=== PATIENT | female | born 1980 | race Caucasian/White ===

== ENCOUNTER 2018-04-12 18:38 | Inpatient (IN) | payer MEDICAID ==
[2018-04-12] MEDS ORDERED: MISOPROSTOL 200 MCG TAB PR (19:30)
[2018-04-12] MEDS ORDERED: IBUPROFEN 600 MG TAB PO (19:30)
[2018-04-12] MEDS ORDERED: OXYTOCIN 30 UNITS/LR 500 ML IV ×3 (19:30)
[2018-04-12] MEDS ORDERED: BUTORPHANOL 2 MG INJ IV (19:30)
[2018-04-12] MEDS ORDERED: METHYLERGONOVINE 0.2 MG INJ IM (19:30)
[2018-04-12] MEDS ORDERED: LIDOCAINE 1% (MPF) 30 ML INJ INJ (19:30)
[2018-04-12] MEDS ORDERED: CARBOPROST 250 MCG INJ IM (19:30)
[2018-04-12 19:55] LABS: ADD MAN DIFF? NO
[2018-04-12 19:58] LABS: WHITE BLOOD COUNT 12.4 10^3/ul (4.8-10.8)
[2018-04-12 19:58] LABS: BASOPHIL # 0.1 10^3/ul (0.0-0.1); BASOPHILS % 0.4 % (0.0-2.0); EOSINOPHILS # 0.2 10^3/ul (0.0-0.5); EOSINOPHILS % 1.2 % (0.0-7.0); HEMATOCRIT 35.3 % (37.0-47.0); HEMOGLOBIN 11.6 g/dl (12.0-16.0); LYMPHOCYTES # 1.7 10^3/ul (0.8-2.9); LYMPHOCYTES % 13.9 % (15.0-51.0); MEAN CORPUSCULAR HEMOGLOBIN 30.1 pg (29.0-33.0); MEAN CORPUSCULAR HGB CONC 32.9 g/dl (32.0-37.0); MEAN CORPUSCULAR VOLUME 91.7 fl (82.0-101.0); MEAN PLATELET VOLUME 9.6 fl (7.4-10.4); MONOCYTE # 1.1 10^3/ul (0.3-0.9); MONOCYTES % 8.5 % (0.0-11.0); NEUTROPHIL # 9.3 10^3/ul (1.6-7.5); NEUTROPHILS % 74.8 % (39.0-77.0); PLATELET COUNT 339 10^3/UL (140-415); RED BLOOD COUNT 3.85 10^6/ul (4.20-5.40); RED CELL DISTRIBUTION WIDTH 13.4 % (11.5-14.5)
[2018-04-12] MEDS: LACTATED RINGER'S 1,000 ML IV* (20:26)
[2018-04-12 20:29] LABS: INR 0.84; PARTIAL THROMBOPLASTIN TIME 26.4 Sec (25.0-35.0); PROTIME 11.6 Sec (11.9-14.9); PT RATIO 0.9
[2018-04-12] MEDS: DINOPROSTONE 10 MG VAG SUPP VAG (21:38)
[2018-04-13 00:17] LABS: HEPATITIS B SURFACE ANTIGEN NEGATIVE (NEGATIVE)
[2018-04-13] MEDS: LACTATED RINGER'S 1,000 ML IV* ×3 (02:27→18:47)
[2018-04-13 04:36] LABS: RUPTURE FETAL MEMBRANES POSITIVE (NEGATIVE)
[2018-04-13] MEDS ORDERED: MINERAL OIL LIGHT 10 ML VIAL TOP (05:00)
[2018-04-13] MEDS: DINOPROSTONE 10 MG VAG SUPP VAG (11:28)
[2018-04-13] MEDS: AMPICILLIN 2 GM/NS (PMX) 100 ML IV (11:29)
[2018-04-13] MEDS: AMPICILLIN 1 GM/NS (PMX) 50 ML IV ×3 (15:06→23:57)
[2018-04-13 21:21] LABS: RAPID PLASMA REAGIN NONREACTIVE (NR)
[2018-04-13] MEDS: OXYTOCIN 30 UNITS/LR 500 ML IV (23:55)
[2018-04-14] MEDS: AMPICILLIN 1 GM/NS (PMX) 50 ML IV ×5 (03:57→20:01)
[2018-04-14] MEDS: LACTATED RINGER'S 1,000 ML IV* ×3 (03:57→20:49)
[2018-04-14] MEDS: LACTATED RINGER'S 1,000 ML IV (10:16)
[2018-04-14] MEDS ORDERED: NALOXONE (0.4 MG/ML) INJ IV (11:00)
[2018-04-14] MEDS: FENTAnyl 2MCG/ML-ROPIV 0.2% 100 ML BAG EPI (18:26)
[2018-04-15] MEDS: AMPICILLIN 1 GM/NS (PMX) 50 ML IV ×6 (00:05→20:00)
[2018-04-15] MEDS: OXYTOCIN 30 UNITS/LR 500 ML IV ×2 (00:08→23:27)
[2018-04-15] MEDS: FENTAnyl 2MCG/ML-ROPIV 0.2% 100 ML BAG EPI ×2 (02:00→09:03)
[2018-04-15] MEDS: LACTATED RINGER'S 1,000 ML IV* ×4 (03:27→21:09)
[2018-04-15] MEDS: MINERAL OIL LIGHT 10 ML VIAL TOP (17:53)
[2018-04-15] MEDS: CEFAZOLIN 2 GM/50 ML (PMX) 50 ML IVPB (21:08)
[2018-04-15] MEDS ORDERED: ONDANSETRON 4 MG INJ (21:44)
[2018-04-15] MEDS ORDERED: OXYTOCIN 10 UNIT INJ (21:44)
[2018-04-15] MEDS ORDERED: morphine SULFATE/PF (10 MG/10 ML) INJ (21:44)
[2018-04-15] MEDS ORDERED: PHENYLephrine (100 MCG/ML) 5ML SYG (22:04)
[2018-04-15] MEDS: KETOROLAC 30 MG INJ IV (23:26)
[2018-04-15] MEDS ORDERED: ONDANSETRON 4 MG INJ IV (23:30)
[2018-04-15] MEDS ORDERED: DIPHENHYDRAMINE 50 MG INJ IV (23:30)
[2018-04-15] MEDS ORDERED: NALOXONE (0.4 MG/ML) INJ IV (23:30)
[2018-04-15] MEDS ORDERED: morphine 2 MG INJ IV (23:30)
[2018-04-16] MEDS ORDERED: LANOLIN 7 GM TUBE TOP (02:30)
[2018-04-16] MEDS ORDERED: ONDANSETRON 4 MG INJ IV (02:30)
[2018-04-16] MEDS ORDERED: METHYLERGONOVINE 0.2 MG INJ IM (02:30)
[2018-04-16] MEDS ORDERED: MISOPROSTOL 200 MCG TAB PR (02:30)
[2018-04-16] MEDS ORDERED: CARBOPROST 250 MCG INJ IM (02:30)
[2018-04-16] MEDS ORDERED: DIPHENHYDRAMINE 50 MG INJ IV (02:30)
[2018-04-16] MEDS ORDERED: ZOLPIDEM 5 MG TAB PO (02:30)
[2018-04-16] MEDS ORDERED: OXYTOCIN 30 UNITS/LR 500 ML IV (02:30)
[2018-04-16] MEDS: LACTATED RINGER'S 1,000 ML IV ×2 (03:31→15:31)
[2018-04-16] MEDS: CEFAZOLIN 1 GM/50 ML (PMX) 50 ML IV ×3 (05:02→21:12)
[2018-04-16 08:20] LABS: ADD MAN DIFF? NO
[2018-04-16 08:24] LABS: BASOPHIL # 0.1 10^3/ul (0.0-0.1); BASOPHILS % 0.2 % (0.0-2.0); EOSINOPHILS # 0.1 10^3/ul (0.0-0.5); EOSINOPHILS % 0.2 % (0.0-7.0); HEMATOCRIT 27.6 % (37.0-47.0); LYMPHOCYTES # 1.6 10^3/ul (0.8-2.9); MEAN CORPUSCULAR HEMOGLOBIN 29.9 pg (29.0-33.0); MEAN CORPUSCULAR HGB CONC 32.6 g/dl (32.0-37.0); MEAN CORPUSCULAR VOLUME 91.7 fl (82.0-101.0); MONOCYTE # 1.2 10^3/ul (0.3-0.9); MONOCYTES % 6.1 % (0.0-11.0); NEUTROPHIL # 17.2 10^3/ul (1.6-7.5); NEUTROPHILS % 84.7 % (39.0-77.0); PLATELET COUNT 252 10^3/UL (140-415); RED BLOOD COUNT 3.01 10^6/ul (4.20-5.40); RED CELL DISTRIBUTION WIDTH 13.5 % (11.5-14.5)
[2018-04-16 08:24] LABS: WHITE BLOOD COUNT 20.3 10^3/ul (4.8-10.8)
[2018-04-16] MEDS: SENNA/DOCUSATE NA (8.6MG/50MG) TAB PO ×2 (08:43→21:13)
[2018-04-16] MEDS: KETOROLAC 30 MG INJ IV ×3 (08:43→21:24)
[2018-04-17] MEDS: LACTATED RINGER'S 1,000 ML IV (05:00)
[2018-04-17] MEDS: IBUPROFEN 600 MG TAB PO ×5 (05:39→23:46)
[2018-04-17] MEDS: SENNA/DOCUSATE NA (8.6MG/50MG) TAB PO ×2 (09:00→20:54)
[2018-04-17 13:20] LABS: ADD MAN DIFF? NO
[2018-04-17 13:23] LABS: WHITE BLOOD COUNT 16.8 10^3/ul (4.8-10.8)
[2018-04-17 13:23] LABS: BASOPHILS % 0.2 % (0.0-2.0); EOSINOPHILS # 0.1 10^3/ul (0.0-0.5); EOSINOPHILS % 0.7 % (0.0-7.0); HEMOGLOBIN 9.7 g/dl (12.0-16.0); LYMPHOCYTES # 1.1 10^3/ul (0.8-2.9); LYMPHOCYTES % 6.8 % (15.0-51.0); MEAN CORPUSCULAR HEMOGLOBIN 30.3 pg (29.0-33.0); MEAN CORPUSCULAR HGB CONC 33.4 g/dl (32.0-37.0); MEAN CORPUSCULAR VOLUME 90.6 fl (82.0-101.0); MONOCYTE # 0.9 10^3/ul (0.3-0.9); MONOCYTES % 5.2 % (0.0-11.0); NEUTROPHIL # 14.5 10^3/ul (1.6-7.5); NEUTROPHILS % 86.1 % (39.0-77.0); PLATELET COUNT 300 10^3/UL (140-415); RED CELL DISTRIBUTION WIDTH 13.6 % (11.5-14.5)
[2018-04-17] MEDS: OXYCODONE/ACETAMINOPHEN (5/325) TAB PO (18:18)
[2018-04-18] MEDS: IBUPROFEN 600 MG TAB PO ×2 (05:30→11:04)
[2018-04-18] MEDS: DIPHTH/TET/ACEL PERTUSS (ADULT) 0.5 ML VIAL IM* (09:00)
[2018-04-18] MEDS: SENNA/DOCUSATE NA (8.6MG/50MG) TAB PO (11:04)
[2018-04-18] MEDS: OXYCODONE/ACETAMINOPHEN (5/325) TAB PO (14:25)
== END 2018-04-18 16:00 | disposition home or self-care (01) | DRG 766 ==
LOC: OBT 18:38 → PP1 04-16 00:44 → L-D 18:38 → OBT 19:10 → L-D 04-15 22:44
PROVIDERS: Obstetrics & Gynecology
PROC: 10D00Z1 Extraction of Products of Conception, Low, Open Approach (ICD-10-PCS; principal; 2018-04-15 21:30)
DX: O42.12 Full-term premature rupture of membranes, onset of labor more than 24 hours following rupture (principal); O32.4XX0 Maternal care for high head at term, not applicable or unspecified; O62.1 Secondary uterine inertia; O76 Abnormality in fetal heart rate and rhythm complicating labor and delivery; O69.81X0 Labor and delivery complicated by cord around neck, without compression, not applicable or unspecified; Z3A.39 39 weeks gestation of pregnancy; Z37.0 Single live birth
CPT/HCPCS: 62319; 76815; 76818; 84112; 85025; 85610; 85730; 86592; 86850; 86900; 86901; 87340; 88307; 99464

== ENCOUNTER 2018-04-21 22:52 | Inpatient (IN) | payer MEDICAID ==
[2018-04-22] MEDS ORDERED: CLINDAMYCIN 900 MG/D5W (PMX) 50 ML IVPB
[2018-04-22] MEDS: LACTATED RINGER'S 1,000 ML IV ×4 (01:11→23:56)
[2018-04-22] MEDS: PIPER-TAZO 3.375 GM IV (PMX) 100 ML IVPB ×5 (01:18→23:55)
[2018-04-22 01:20] LABS: HEMATOCRIT 29.1 % (37.0-47.0); HEMOGLOBIN 9.1 g/dl (12.0-16.0); MEAN CORPUSCULAR HEMOGLOBIN 28.7 pg (29.0-33.0); MEAN CORPUSCULAR HGB CONC 31.3 g/dl (32.0-37.0); MEAN CORPUSCULAR VOLUME 91.8 fl (82.0-101.0); MEAN PLATELET VOLUME 9.4 fl (7.4-10.4); NUCLEATED RED BLOOD CELLS% 0.2 /100WBC (0.0-0.0); PLATELET COUNT 411 10^3/UL (140-415); RED BLOOD COUNT 3.17 10^6/ul (4.20-5.40); RED CELL DISTRIBUTION WIDTH 13.8 % (11.5-14.5)
[2018-04-22 01:20] LABS: WHITE BLOOD COUNT 9.3 10^3/ul (4.8-10.8)
[2018-04-22 01:21] LABS: ADD MAN DIFF? YES; POSITIVE DIFF @See below
[2018-04-22 01:45] LABS: ALANINE AMINOTRANSFERASE 62 IU/L (13-69); ALBUMIN 2.7 g/dl (3.3-4.9); ALKALINE PHOSPHATASE 232 IU/L (42-121); ANION GAP 9 (8-16); ASPARTATE AMINO TRANSFERASE 65 IU/L (15-46); BILIRUBIN,INDIRECT 0.3 mg/dl (0-1.1); BILIRUBIN,TOTAL 0.3 mg/dl (0.2-1.3); BLOOD UREA NITROGEN 9 mg/dl (7-20); CALCIUM 8.3 mg/dl (8.4-10.2); CARBON DIOXIDE 27 mmol/L (21-31); CHLORIDE 104 mmol/L (97-110); GLUCOSE 115 mg/dl (70-220); POTASSIUM 4.3 mmol/L (3.5-5.1); SODIUM 136 mmol/L (135-144); TOTAL PROTEIN 5.7 g/dl (6.1-8.1)
[2018-04-22] MEDS: CLINDAMYCIN 900 MG/D5W (PMX) 50 ML IVPB (01:56)
[2018-04-22 02:13] LABS: BAND NEUTROPHILS #M 2.6 10^3/ul (0.0-0.6); BAND NEUTROPHILS % (M) 28 % (0-4); BURR CELLS 1+ (0-0); EOSINOPHILS % (M) 3 % (0-7); GIANT THROMBO% (M) 2 % (0-0); LYMPHOCYTES #M 0.9 10^3/ul (0.8-2.9); LYMPHOCYTES % (M) 10 % (15-51); METAMYELOCYTES #M 0.4 10^3/ul (0.0-0.0); METAMYELOCYTES %M 5 % (0-0); MICROCYTOSIS 1+ (0-0); MONOCYTE #M 0.3 10^3/ul (0.3-0.9); MONOCYTES % (M) 4 % (0-11); MYELOCYTES % (M) 1 % (0-0); OVALOCYTES 1+ (0-0); PLATELET ESTIMATE NORMAL; POLYCHROMASIA 1+ (0-0); SEG NEUT #M 4.8 10^3/ul (1.6-7.5); SEGMENTED NEUTROPHILS (M) % 49 % (39-77)
[2018-04-22] MEDS: IBUPROFEN 800 MG TAB PO ×3 (05:12→21:13)
[2018-04-22] MEDS: CLINDAMYCIN 600 MG/D5W (PMX) 50 ML IVPB ×3 (06:54→17:46)
[2018-04-22 07:31] LABS: ADD UMIC YES; UR ASCORBIC ACID NEGATIVE (NEGATIVE); UR BACTERIA FEW /HPF (NONE SEEN); UR BILIRUBIN (Dip) NEGATIVE (NEGATIVE); UR BLOOD (Dip) 2+ mg/dL (NEGATIVE); UR CLARITY CLEAR (CLEAR); UR COLOR YELLOW (YELLOW); UR GLUCOSE (Dip) NEGATIVE (NEGATIVE); UR KETONES (Dip) NEGATIVE (NEGATIVE); UR LEUKOCYTE ESTERASE (Dip) 1+ Leu/ul (NEGATIVE); UR NITRITE (Dip) NEGATIVE (NEGATIVE); UR RBC 11 /HPF (0-5); UR SPECIFIC GRAVITY (Dip) 1.012 (1.003-1.030); UR SQUAMOUS EPITHELIAL CELL FEW /HPF (FEW); UR TOTAL PROTEIN (Dip) NEGATIVE (NEGATIVE); UR UROBILINOGEN (Dip) NEGATIVE (NEGATIVE); UR WBC 38 /HPF (0-5)
[2018-04-22 14:34] LABS: HEMATOCRIT 27.3 % (37.0-47.0); HEMOGLOBIN 8.8 g/dl (12.0-16.0); MEAN CORPUSCULAR HEMOGLOBIN 29.4 pg (29.0-33.0); MEAN CORPUSCULAR HGB CONC 32.2 g/dl (32.0-37.0); MEAN CORPUSCULAR VOLUME 91.3 fl (82.0-101.0); MEAN PLATELET VOLUME 9.2 fl (7.4-10.4); PLATELET COUNT 406 10^3/UL (140-415); RED BLOOD COUNT 2.99 10^6/ul (4.20-5.40); RED CELL DISTRIBUTION WIDTH 13.9 % (11.5-14.5)
[2018-04-22 14:34] LABS: WHITE BLOOD COUNT 10.5 10^3/ul (4.8-10.8)
[2018-04-22 14:35] LABS: ADD MAN DIFF? YES; POSITIVE DIFF @See below
[2018-04-22 16:34] LABS: ANISOCYTOSIS 1+ (0-0); BAND NEUTROPHILS #M 2.8 10^3/ul (0.0-0.6); BAND NEUTROPHILS % (M) 27 % (0-4); BURR CELLS 2+ (0-0); EOSINOPHILS % (M) 1 % (0-7); ERYTHROBLAST% (NRBC) (M) 2 % (0-0); GIANT THROMBO% (M) 2 % (0-0); LYMPHOCYTES #M 1.4 10^3/ul (0.8-2.9); LYMPHOCYTES % (M) 14 % (15-51); MICROCYTOSIS 1+ (0-0); MONOCYTE #M 0.1 10^3/ul (0.3-0.9); MONOCYTES % (M) 1 % (0-11); PLATELET ESTIMATE NORMAL; POIKILOCYTOSIS 1+ (0-0); SEG NEUT #M 6.3 10^3/ul (1.6-7.5); SEGMENTED NEUTROPHILS (M) % 57 % (39-77); SMUDGE%M 9 % (0-0); TEAR DROP CELLS 1+ (0-0)
[2018-04-22] MEDS: HYDROGEN PEROXIDE 118 ML TOP (20:00)
[2018-04-23] MEDS: CLINDAMYCIN 600 MG/D5W (PMX) 50 ML IVPB ×3 (00:33→12:08)
[2018-04-23] MEDS: PIPER-TAZO 3.375 GM IV (PMX) 100 ML IVPB ×2 (06:05→12:08)
[2018-04-23] MEDS: LACTATED RINGER'S 1,000 ML IV ×2 (08:00→11:22)
[2018-04-23] MEDS: HYDROGEN PEROXIDE 118 ML TOP (10:39)
[2018-04-23] MEDS: IBUPROFEN 800 MG TAB PO (11:22)
== END 2018-04-23 14:45 | disposition home or self-care (01) | DRG 776 ==
LOC: MS1 22:52
DX: O90.2 Hematoma of obstetric wound (principal); O86.0 Infection of obstetric surgical wound
CPT/HCPCS: 76536; 76856; 80053; 81001; 85025; 87081; 87086